=== PATIENT | male | born 1995 | race Caucasian/White ===

== ENCOUNTER 2019-01-25 21:23 | Emergency (ER) | payer SELFPAY ==
[~2019-01-25] VITALS: Ht 185.4 cm; Wt 76.6 kg
[2019-01-25 21:42] VITALS: BP 153/97; PULSE 88; RESP 20; Ht 185.4 cm; Wt 76.6 kg
== END 2019-01-25 22:17 | disposition left against medical advice (07) ==
LOC: FTE 21:23
DX: Z53.21 Procedure and treatment not carried out due to patient leaving prior to being seen by health care provider (principal)

== ENCOUNTER 2019-01-27 01:22 | Emergency (ER) | payer BC, OTHER ==
[~2019-01-27] VITALS: Wt 73.6 kg
[2019-01-27 01:34] VITALS: BP 144/73; PULSE 100; RESP 19
--- NOTE | 2019-01-27 04:04 | ERD ---
ER Documentation Chief Complaint Chief Complaint bib self, cc: groin pain has hx of groin swelling, and lower back pain work HPI 24-year-old male, presents the emergency department, complaining of bilateral groin pain radiating to the testicles for more than 2 years. The patient is requesting an ultrasound that according to the patient is required by his job at [employer] to be able to work. The patient denies dysuria, no masses, no history of se xually transmitted infections. No fever or chills, no abdominal pain. ROS All systems reviewed and are negative except as per history of present illness. Medications Home Meds Active Scripts Ibuprofen* (Motrin*) 400 Mg Tab, 400 MG PO Q6H PRN for PAIN AND OR ELEVATED TEMP, #20 TAB Prov:POWER LANDEROS MD 01/27/19 Allergies Allergies: Coded Allergies: No Known Allergy (Unverified , 01/25/19) FmHx Family History: No diabetes, No coronary disease Physical Exam Vitals Vital Signs Date Temp Pulse Resp B/P (MAP) Pulse Ox O2 O2 Flow FiO2 Time Delivery Rate 01/27/19 97.0 100 19 144/73 100 01:34 (96) Physical Exam Const: No acute distress Head: Atraumatic Eyes: Normal Conjunctiva ENT: Normal External Ears, Nose and Mouth. Neck: Full range of motion. No meningismus. Resp: Clear to auscultation bilaterally Cardio: Regular rate and rhythm, no murmurs Abd: Soft, non tender, non distended. Normal bowel sounds Skin: No petechiae or rashes Back: No midline or flank tenderness Ext: No cyanosis, or edema Neur: Awake and alert Psych: Normal Mood and Affect Results 24 hrs Patient: DEIRDRE LAYTON : 1995 Age: 24 Sex: M MR #: [id number] DOS: 01/27/19 0415 Ordering MD: POWER LANDEROS MD Location: [facility] Room/Bed: PROCEDURE: US Scrotum. CLINICAL INDICATION: Pain TECHNIQUE: Multiple sonographic images of the scrotal region were obtained utilizing a linear array transducer with grayscale and color-flow and a Doppler imaging. COMPARISON: No prior studies are available for comparison. FINDINGS: The testicles are normal in size the right measuring 4.7 x 2.07 x 2.81 cm and the left measuring 4.57 x 2.02 x 2.71 cm. Testicular parenchymal echogenicity is normal bilaterally without focal lesions. There is flow to both testicles without ultrasonic evidence of testicular torsion. The epididymal heads are normal in size the right measuring 0.9 and the left measuring 1.0 cm. No focal epididymal lesions. No hydroceles or varicoceles. IMPRESSION: 1. Unremarkable testicles and epididymi without focal lesions. 2. No evidence of testicular torsion. 3. No hydroceles or varicoceles demonstrated. Procedures/MDM During the medical encounter differential diagnosis like UTI, epididymitis, inguinal hernia, testicular torsion, varicocele, testicular mass were considered, therefore and a scrotal ultrasound and a were requested, see results above. Physical examination and clinical presentation consistent most likely with groin sprain. During the ED course the patient remained stable, no new complaints. Results and clinical impression discussed with the patient who agrees with management. The patient is stable to be treated outpatient and will be discha rged home with a Rx for ibuprofen, some side effects of prescribed medications (headache, rash, nausea, vomiting, diarrhea, drowsiness, habituation, bleeding, hypertension, interactions with other medications) were reviewed. The patient was instructed to follow up with the primary care provider in the next 48h. If symptoms persist, worsen or new symptoms develop, then patient geoffrey uld return to the ED immediately. Instructions explained and given directly by me to the patient with acknowledgment and demonstrated understanding. Disclaimer: Inadvertent spelling and grammatical errors are likely due to EHR/dictation software use and do not reflect on the overall quality of patient care. Also, please note that the electronic time recorded on this note does not necessarily reflect the actual time of the patient encounter. Departure Diagnosis: Primary Impression: Bilateral groin pain Condition: Stable Additional Instructions: thank you very much for allowing us to participate in your care. Your health and safety is our top priority at [facility]. Call your primary care doctor TOMORROW for an appointment during the next 2-4 days and bring all the information and medications prescribed. Have prescriptions filled and follow precisely the directions on the label. If the symptoms get worse and your provider is unavailable, return to the Emergency Department immediatel POWER LANDEROS MD Jan 27, 2019 04:04
[2019-01-27] MEDS ORDERED: IBUP-1561 PO (05:02)
== END 2019-01-27 05:26 | disposition home or self-care (01) ==
LOC: FTE 01:22
DX: R10.31 Right lower quadrant pain (principal); R10.32 Left lower quadrant pain
CPT/HCPCS: 76870